=== PATIENT | female | born 1950 | race Caucasian/White ===

== ENCOUNTER 2020-06-03 15:04 | Outpatient (CLI) | payer MEDICARE, SELFPAY ==
--- NOTE | ~2020-06-03 | MM_ITS ---
EXAMINATION: MM screening jan BI w asha HISTORY: Screening mammogram TECHNIQUE: Craniocaudal and mediolateral oblique 3-D tomosynthesis images were obtained and synthetic 2-D images were generated. CAD analysis was submitted and interpreted. COMPARISON: 07/17/2018, 04/01/2016 bilateral digital screening mammogram examinations BREAST PARENCHYMAL COMPOSITION: The breasts are almost entirely fatty. FINDINGS: There is no evidence of suspicious mass, calcification, or architectural distortion to sugg est malignancy in either breast. There has been no suspicious interval change. IMPRESSION: 1. No mammographic evidence of malignancy. 2. Recommend routine screening mammography in one year. BI-RADS Category 1: Negative Reviewed, dictated and finalized at location A.
== END 2020-06-03 15:05 | disposition home or self-care (01) ==
LOC: ANHIMG 15:09
PROVIDERS: PCP Internal Medicine; Visit Provider Internal Medicine
DX: Z12.31 Encounter for screening mammogram for malignant neoplasm of breast (principal)
CPT/HCPCS: 77063; 77067

== ENCOUNTER 2022-04-19 09:08 | Day surgery (SDC) | payer MEDICARE, SELFPAY ==
[2022-03-16 13:50] VITALS: BMI 38.1
[2022-04-06 11:24] VITALS: BMI 31.1
--- NOTE | 2022-04-19 07:08 | WPDANESEPPF ---
Anes - Initial Pre Proc Eval Procedure: Operation Date: 04/19/22 11:00 Proposed Procedures p Screening Colonoscopy - Harish Matute MD Date/Time: 04/19/22 07:08 Surgeon: Harish Matute MD Pre Op Diagnosis: Neoplasm Screening Patient Data Age: 71 Gender: F Height: 1.52 m Weight: 72.5 kg Allergies Allergy/AdvReac Type Severity Reaction Status Date / Time No Known Allergies Allergy Verified 04/19/22 09:33 Home Medications Medication Instructions Recorded Confirmed Type sodium,potassium,mag sulfates 17.5 See Rx Instructions PO .COMPLEX 03/16/22 04/19/22 Rx gram-3.13 gram-1.6 gram oral soln #354 mL (Suprep Bowel Prep Kit) aspirin 81 mg tablet 81 mg PO DAILY 04/06/22 04/19/22 History atorvastatin 10 mg tablet 10 mg PO DAILY 04/06/22 04/19/22 History cetirizine 10 mg tablet (Zyrtec) 10 mg PO DAILY 04/06/22 04/19/22 History escitalopram oxalate 10 mg tablet 10 mg PO DAILY 04/06/22 04/19/22 History levothyroxine 125 mcg tablet 125 mcg PO DAILY 04/06/22 04/19/22 History montelukast 10 mg tablet 10 mg PO DAILY 04/06/22 04/19/22 History triamterene 37.5 1 tablet PO DAILY 04/06/22 04/19/22 History mg-hydrochlorothiazide 25 mg tablet Patient hx anesthesia problems: none Family hx anesthesia problems: none Results Review: All pre-operative results and documents have been reviewed as part of the pre-operative evaluation. [facility] Past Medical History Medical History (Updated 04/19/22 @ 09:56 by Harish Matute MD) Hyperlipidemia Hypertension Hypothyroidism Surgical History Surgical History (Updated 04/19/22 @ 07:09 by Gunnar Bauer DO) History of cholecystectomy Social History Social History Smoking status: Never smoker Alcohol intake: never Substance use: never Substance use type: does not use Living arrangements: with family Spiritual care concerns: No Anes - Eval Final PreProcedure Day of Procedure 04/19/22 07:08 Patient weight: obese Heart: regular rate and rhythm Lungs: clear to auscultation Airway: Mallampati scale class II Neurological: alert and oriented Last oral intake: >/= 8 hours ASA classification: III Emergent: no Anesthetic plan: proceed Anesthesia type and monitoring: general GIVS and standard monitoring Results Review: All pre-operative results and documents have been reviewed as part of the pre-operative evaluation. Informed Consent: The patient's anesthetic plan and its attendant risks and benefits were discussed with the patient/family/POA. Questions were solicited and answers provided to the satisfaction of the patient/family/POA.
[2022-04-19 09:30] VITALS: BP 140/74; PULSE 78; RESP 18; TEMP 35.9; O2SAT 95
[2022-04-19] MEDS: LACTATED RINGERS 1,000 ML 150 ML IV CONT (09:50)
--- NOTE | 2022-04-19 09:54 | PM.HPGS ---
History of Present Illness History of Present Illness Consent: Risks, benefits, and alternatives have been discussed and questions answered. Patient agrees to proceed with procedure. Chief complaint: Neoplasm Screening Narrative: Kari Tomas is a 71 year old female Presents for screening colonoscopy. Patient's current weight appetite and bowel movements are normal. Patient denies abdominal pain. She has had no bleeding. Family history is noncontributory. Patient's past medical history is significant for cholecystectomy. Review of Systems Review of Systems: Review of systems noncontributory. [facility] Past Medical History Medical History (Updated 04/19/22 @ 09:56 by Harish Matute MD) Hyperlipidemia Hypertension Hypothyroidism Surgical History Surgical History (Updated 04/19/22 @ 07:09 by Gunnar Bauer DO) History of cholecystectomy Social History Social History Smoking status: Never smoker Alcohol intake: never Substance use: never Substance use type: does not use Living arrangements: with family Spiritual care concerns: No Meds Home Medications and Allergies Home Medications Medication Instructions Recorded Confirmed Type sodium,potassium,mag sulfates 17.5 See Rx Instructions PO .COMPLEX 03/16/22 04/19/22 Rx gram-3.13 gram-1.6 gram oral soln #354 mL (Suprep Bowel Prep Kit) aspirin 81 mg tablet 81 mg PO DAILY 04/06/22 04/19/22 History atorvastatin 10 mg tablet 10 mg PO DAILY 04/06/22 04/19/22 History cetirizine 10 mg tablet (Zyrtec) 10 mg PO DAILY 04/06/22 04/19/22 History escitalopram oxalate 10 mg tablet 10 mg PO DAILY 04/06/22 04/19/22 History levothyroxine 125 mcg tablet 125 mcg PO DAILY 04/06/22 04/19/22 History montelukast 10 mg tablet 10 mg PO DAILY 04/06/22 04/19/22 History triamterene 37.5 1 tablet PO DAILY 04/06/22 04/19/22 History mg-hydrochlorothiazide 25 mg tablet Allergies Allergy/AdvReac Type Severity Reaction Status Date / Time No Known Allergies Allergy Verified 04/19/22 09:33 Vital Signs Vital Signs - 24 hr 04/19/22 09:30 Temperature 96.7 F L Pulse Rate 78 Respiratory Rate 18 Blood Pressure 140/74 Pulse Oximetry 95 Oxygen Delivery Room Air Exam Narrative: Physical exam reveals patient to be alert. Vital signs stable. HEENT exam is unremarkable. Patient is anicteric. Lungs are clear to auscultation and percussion. Heart is without murmur or extra sounds. Abdomen bowel sounds are present soft nontender with no organomegaly. Digital external rectal exam is normal. Assessment and Plan Assessment and plan (1) Encounter for screening colonoscopy: Code(s): Z12.11 - Encounter for screening for malignant neoplasm of colon Status: Acute Assessment and Plan: Patient presents for screening colonoscopy. Appears to be at average risk for colon polyps. Further recommendations may be given after endoscopy.
[2022-04-19 11:01] VITALS: BP 109/53; PULSE 76; RESP 15; O2SAT 99
[2022-04-19 11:11] VITALS: BP 129/66; PULSE 70; RESP 17; O2SAT 98
[2022-04-19 11:21] VITALS: BP 138/72; PULSE 61; RESP 18; O2SAT 100
--- NOTE | 2022-04-19 12:44 | WPDANESPN ---
Anes - Prog Note Post-Op Date/Time: 04/19/22 12:44 Cardiovascular status: normal Respiratory status: normal Airway patency: baseline Mental status: baseline Post-Op hydration status: normal Vital Signs: Last Vital Signs Temp 35.9 C L 04/19/22 09:30 Pulse 61 04/19/22 11:21 Resp 18 04/19/22 11:21 BP 138/72 04/19/22 11:21 Pulse Ox 100 04/19/22 11:21 O2 Del Method Room Air 04/19/22 11:21 Pain Score (VAS): 0 I/O: Intake & Output 04/18/22 04/19/22 04/19/22 23:59 07:59 15:59 Intake Total 500 Balance 500 Post-procedural complaints: none Patient Feedback: Patient satisfied with anesthetic care. Other Findings: Patient vital signs back to baseline. Patient denies nausea and vomiting. Patient's pain under control. Patient OK for discharge.
== END 2022-04-19 11:35 | disposition home or self-care (01) ==
PROVIDERS: PCP Internal Medicine; Visit Provider Internal Medicine Gastroenterology
PROC: 0DJD8ZZ Inspection of Lower Intestinal Tract, Via Natural or Artificial Opening Endoscopic (ICD-10-PCS; CPT 45378; principal; 2022-04-19 11:00)
DX: Z12.11 Encounter for screening for malignant neoplasm of colon (principal)
CPT/HCPCS: 45378

== ENCOUNTER 2022-05-18 09:52 | Outpatient (CLI) | payer MEDICARE, SELFPAY ==
--- NOTE | ~2022-05-18 | MM_ITS ---
EXAMINATION: MM screening jan BI w asha HISTORY: Screening TECHNIQUE: Craniocaudal and mediolateral oblique 3-D tomosynthesis images were obtained and synthetic 2-D images were generated. CAD analysis was submitted and interpreted. COMPARISON: Comparison to multiple prior studies sequentially, with oldest reviewed study dated 03/2016. BREAST PARENCHYMAL COMPOSITION: There are scattered areas of fibroglandular density. FINDINGS: There is no evidence of suspicious mass, calcification, or architectural distortion to sugg est malignancy in either breast. There has been no suspicious interval change. IMPRESSION: 1. No mammographic evidence of malignancy. 2. Recommend routine screening mammography in one year. BI-RADS Category 1: Negative Reviewed, dictated and finalized at location A.
== END 2022-05-18 09:53 | disposition home or self-care (01) ==
LOC: ANHIMG 09:55
PROVIDERS: PCP Internal Medicine; Visit Provider Internal Medicine
DX: Z12.31 Encounter for screening mammogram for malignant neoplasm of breast (principal)
CPT/HCPCS: 77063; 77067

== ENCOUNTER 2024-02-17 15:24 | Outpatient (CLI) | payer MEDICARE, SELFPAY ==
--- NOTE | ~2024-02-17 | MM_ITS ---
EXAMINATION: MM screening jan BI w asha HISTORY: Screening TECHNIQUE: Craniocaudal and mediolateral oblique 3-D tomosynthesis images were obtained and synthetic 2-D images were generated. CAD analysis was submitted and interpreted. COMPARISON: Comparison to multiple prior studies sequentially, with oldest reviewed study dated 05/18. BREAST PARENCHYMAL COMPOSITION: Not Dense: The breasts are almost entirely fatty. FINDINGS: The right breast is stable without evidence for malignancy. There is a new focal asymmetry with possible architectural distortion in the lower inner quadrants of the left breast, posterior thi rd. IMPRESSION: 1. New left breast asymmetry with possible architectural distortion in the lower inner quadrant. 2. Additional mammographic views and possible breast ultrasound are recommended. BI-RADS Category 0: Incomplete: Needs additional imaging evaluation. Reviewed, dictated and finalized at location B. L DESK CLERK IMPRESSION: 1. New left breast asymmetry with possible architectural distortion in the lowe r inner quadrant. 2. Additional mammographic views and possible breast ultrasound are recommended . BI-RADS Category 0: Incomplete: Needs additional imaging evaluation.
== END 2024-02-17 15:25 | disposition home or self-care (01) ==
LOC: ANHIMG 15:36
PROVIDERS: PCP Internal Medicine; Visit Provider Internal Medicine
DX: Z12.31 Encounter for screening mammogram for malignant neoplasm of breast (principal); R92.8 Other abnormal and inconclusive findings on diagnostic imaging of breast
CPT/HCPCS: 77063; 77067

== ENCOUNTER 2024-03-22 12:47 | Outpatient (CLI) | payer MEDICARE, SELFPAY ==
--- NOTE | ~2024-03-22 | MMUS_ITS ---
EXAMINATION: MM diagnostic jan LT w asha, US breast LT limited HISTORY: Follow-up left breast mass TECHNIQUE: Additional 3-D tomosynthesis images of the left breast were performed and synthetic 2-D im ages were generated. CAD analysis was submitted and interpreted. High resolution Limited left breast ultrasound was performed. COMPARISON: Comparison to multiple prior studies sequentially, with oldest reviewed study dated 03/2016. BREAST PARENCHYMAL COMPOSITION: Not dense: There are scattered areas of fibroglandular density. FINDINGS: MAMMOGRAPHIC FINDINGS: There is an irregular shaped mass with indistinct margins without associated calcifications in the 9: 00 position of the left breast.. ULTRASOUND: Limited left breast ultrasound: At 9:30, 14 cm from the nipple there is an irregular shaped hypoechoi c mass with some angular margins measuring 1.3 x 1.1 x 1 cm. There is posterior acoustic shadowing. N o internal vascularity. IMPRESSION: 1. Irregular shaped left breast mass measuring up to 1.3 cm at 9:30, 14 cm from the nipple. 2. Ultrasound-guided left breast biopsy recommended. BI-RADS category 4, suspicious findings. Reviewed, dictated and finalized at location A. CLEANING MANAGER IMPRESSION: 1. Irregular shaped left breast mass measuring up to 1.3 cm at 9:30, 14 cm from the nipple. 2. Ultrasound-guided left breast biopsy recommended. BI-RADS category 4, suspicious findings.
--- OUTSIDE RECORDS SUMMARY | 2024-03-23 04:59 | XMS_ITS | Data Portability ---
Author Organization [place] [facility], Main Office Address [address] [place] [address] Assessment Encounter Date Assessment Date Assessment LastModified by Organization Details LastModified Time 10/20/2022 10/20/2022 Continue current therapy blood work ordered Prevnar 26 month follow-up [email or web address] Not available 10/20/2022 22:37:19 Plan of Treatment Reminders Order Date Submit Date Provider Last Modified By Organization Details Last Modified Time Details Appointments None recorded . Lab CMP, serum or plasma 023 10/21/19 [facility], [address] , [place], [address], 3 11:45:36 lipid panel, serum 023 10/21/19 [facility], [address] , [place], [address], 3 11:45:37 CBC w/ auto diff 023 10/21/19 [facility], [address] , [place], [address], 3 11:23:13 TSH, serum or plasma 023 10/21/19 [facility], [address], [place], [address], 3 11:45:37 T4, free, serum 023 10/21/19 [facility], [address] , [place], [address], 3 11:45:37 T3, total, serum 023 10/21/19 [facility], [address], [place], [address], 3 11:45:37 Referral None recorded . Procedures None recorded . Surgeries None recorded . Imaging None recorded . Medication Orders None recorded . Patient TargetsNo targets recorded. Patient InstructionsNo instructions recorded. Reason for Referral None Reported. Results Created Date Observation Date Name Description Value Unit Range Abnormal Flag Note LastModifiedBy Organization Detail LastModifiedTime 06/04/1906/03/2020 MAMMO , scree kristen, digit al, bilat eral No observ ation record ed. [id number], [place], [address], 04/28/2022 06:09:56 05/19/1905/18/2022 MAMMO , scree kristen, digit al, bilat eral No observ ation record ed. [email or web address] [address], [place], [address], 05/25/2022 21:05:52 Result Notes None recorded. Problems Name Problem SNOMED Code Status Onset Date Resolution Date Notes Provider Name and Address Organization Details Recorded Time Edema 060524588 Active Not Available [facility] 3 06:03:05 Closed Colles' fracture 947039053 Completed Not Available [facility] 3 06:03:05 Depressive disorder 68168300 Completed Not Available [facility] 3 06:03:05 Hypothyroi dism 39204714 Active Not Available [facility] 3 06:03:05 Anxiety 50169593 Active 2020 Not Available [facility] 3 06:03:05 Hyperlipid emia 94718105 Active 2016 Not Available [facility] 3 06:03:05 Vitiligo 96697186 Completed Not Available [facility] 3 06:03:05 Essential hypertensi on 16661556 Active 2020 Not Available [facility] 3 06:03:06 Fatigue 63841741 Active 2022 Not Available [facility] 3 06:03:06 Chronic rhinitis 35441815 Active 2021 Not Available [facility] 3 06:03:06 Problem Notes None recorded. Procedures Surgical History Date Name Laterality Status Provider Name and Address Organization Details Recorded Time 07/22/19 Most Recent Bone Density completed Not Available [facility] 04/28/2022 05:55:52 Cholecystectomy completed Not Available [facility] 04/28/2022 05:55:56 Orthopedic Surgery completed Not Available [facility] 04/28/2022 05:55:56 Imaging Results Imaging Date Name Status LastModified by Organiz ation Details LastModified Time 06/03/2020 MAMMO, screening, digital, bilateral completed [id number] [place] [address], [address], 04/28/2022 06:09:56 05/18/2022 MAMMO, screening, digital, bilateral completed [email or web address] [address] [place] [address], [address], 05/25/2022 21:05:52 Procedure Notes None recorded. Medical Equipment None Reported. Allergies No known drug allergies Medications Name Sig Start Date Stop Date Status Note LastModified by Organization Details LastModified Time Augmentin 875 mg-125 mg tablet Take 1 tablet every 12 hours by oral route for 7 days. 05/29 completed Not Available Not Available Not Available levothyro xine 137 mcg tablet TAKE ONE TABLET BY MOUTH ONCE DAILY 01/30 completed Not Available Not Available Not Available prednison e 10 mg tablet Take 3 x 2 days, 2 x 2 days, 1 x 2 days 05/29 completed Not Available Not Available Not Available atorvasta tin 10 mg tablet TAKE 1 TABLET BY MOUTH ONCE DAILY 2023 active Not Available Not Available Not Avai lable azithromy clarence 250 mg tablet Take 1 dose pk by oral route as directed . 06/11 completed Not Available Not Available Not Available hydrocodo ne 5 mg-acetam inophen 325 mg tablet 02/14 completed Not Available Not Available Not Available prednison e 20 mg tablet Take 2 tablets every day by oral route for 7 days. active Not Available Not Available No t Available acetamino phen 300 mg-codein e 30 mg tablet 02/25 completed Not Available Not Available Not Available triamtere ne 37.5 mg-hydroc hlorothia zide 25 mg capsule 01/30 completed Not Available Not Available Not Available levothyro xine 125 mcg tablet TAKE 1 TABLET BY MOUTH ONCE DAILY active Not Available Not Available No t Available triamtere ne 37.5 mg-hydroc hlorothia zide 25 mg tablet TAKE 1 TABLET BY MOUTH IN THE MORNING 2023 active Not Available Not Available Not Avai lable amoxicill in 250 mg capsule 02/25 completed Not Available Not Available Not Available mont[address] 10 mg tablet TAKE 1 TABLET BY MOUTH DAILY 2023 active Not Available Not Available Not Avai lable albuterol sulfate HFA 90 mcg/actua tion aerosol inhaler INHALE 2 INHALATI ONS BY MOUTH EVERY 4 HOURS NEEDED active Not Available Not Available No t Available levothyro xine 112 mcg tablet Take 1 tablet every day by oral route. 03/24 completed Not Available Not Available Not Available Adult Low Dose Aspirin 81 mg tablet,de layed release Take 1 tablet every day by oral route. 2014 active Not Available Not Available Not Avai lable escitalop steven 10 mg tablet TAKE 1 TABLET BY MOUTH DAILY 2023 active Not Available Not Available Not Avai lable escitalop steven 5 mg tablet Take 1 tablet(s ) every day by oral route. 09/21 completed Not Available Not Available Not Available calcium Take one 1200 tablet daily 01/30 completed Calcium has Vitamin D Not Available Not Available Not Available Centrum 2022 active Not Available Not Available Not Avai lable Probiotic once daily 02/25 completed Not Available Not Available Not Available sodium,po tassium,m ag sulfates 17.5 gram-3.13 gram-1.6 gram oral soln MIX AND DRINK DIRECTED 04/21 completed Not Available Not Available Not Available Shingrix (PF) 50 mcg/0.5 mL intramusc ular suspensio n, kit ADM 0.5ML IM UTD 05/29 completed Not Available Not Available Not Available Flucelvax Quad (PF) 60 mcg (15 mcg x 4)/0.5 mL IM syringe active Not Available Not Available Not Available albuterol sulf 90 mcg/actua tion breath activated powder inhaler,s ensor inhale two puffs by mouth every 4 hrs as needed for SOB 10/08 completed Not Available Not Available Not Available Fluad 2019- 65yr up(PF)45 mcg(15 mcgx3)/0. 5 mL intramusc ular syringe 04/24 completed Not Available Not Available Not Available Vitals Date Recorded Body mass index (BMI) Body height Heart rate Body temperature Body weight Systolic blood pressure Diastolic blood pressure Provider Name and Address Organization Details Last Updated DateTime 1 38.7 kg/m2 152.4 cm 78 /min 96.9 [degF] 98107.2 9 g 114 mm[Hg] 64 mm[Hg] Not Available [facility] 3 05:57:04 Date Recorded Body mass index (BMI) Body height Heart rate Body temperature Body weight Systolic blood pressure Diastolic blood pressure Provider Name and Address Organization Details Last Updated DateTime 1 39.1 kg/m2 152.4 cm 78 /min 96.8 [degF] 77341.4 7 g 126 mm[Hg] 64 mm[Hg] Not Available [facility] 3 05:57:04 Date Recorded Body mass index (BMI) Body height Heart rate Body temperature Body weight Systolic blood pressure Diastolic blood pressure Provider Name and Address Organization Details Last Updated DateTime 2 37.1 kg/m2 152.4 cm 72 /min 97.7 [degF] 16614.5 5 g 126 mm[Hg] 68 mm[Hg] Not Available [facility] 3 05:57:04 Date Recorded Body mass index (BMI) Body height Heart rate Body temperature Body weight Systolic blood pressure Diastolic blood pressure Provider Name and Address Organization Details Last Updated DateTime 2 40.8 kg/m2 152.4 cm 71 /min 95.1 [degF] 90391.8 1 g 122 mm[Hg] 70 mm[Hg] Not Available [facility] 3 05:57:04 Date Recorded Body mass index (BMI) Body height Heart rate Body temperature Body weight Systolic blood pressure Diastolic blood pressure Provider Name and Address Organization Details Last Updated DateTime 3 41.6 kg/m2 152.4 cm 71 /min 97.6 [degF] 13244.1 7 g 126 mm[Hg] 74 mm[Hg] Not Available [facility] 3 05:57:04 Date Recorded Body height Body mass index (BMI) Body weight Body temperature Heart rate Oxygen saturation Oxygen saturation in Arterial blood by Pulse oximetry Systolic blood pressure Diastolic blood pressure Provider Name and Address Organization Details Last Updated DateTime 3 152.4 cm 37.3 kg/m2 65055.1 4 g 98 [degF] 70 /min 96 % 96 % 122 mm[Hg] 80 mm[Hg] [facility] 3 11:09:00 Social History Question Answer Notes LastModified by Organization Details LastModified Time Tobacco Smoking Status Never Smoker Not Available [facility] 04/28/2022 05:53:32 Do You Have An Advance Directive? Yes MIGRATION.0301 [id number] Information not available 04/28/2022 What Is Your Level Of Alcohol Consumption? Occasional Socially MIGRATION.0301 222076 Information not available 04/28/2022 Do You Wear A Helmet When Biking? Yes MIGRATION.0301 109067 Information not available 04/28/2022 Are You Blind Or Do You Have Difficulty Seeing? No MIGRATION.0301 952689 Information not available 04/28/2022 What Is Your Level Of Caffeine Consumption? Moderate MIGRATION.0301 174110 Information not available 04/28/2022 How Much Tobacco Do You Chew? None MIGRATION.0301 664532 Information not available 04/28/2022 In The 14 Days Before Symptom Onset, Have You Had Close Contact With A Laboratory-confi rmed COVID-19 While That Case Was Ill? No MIGRATION.0301 199793 Information not available 04/28/2022 In The 14 Days Before Symptom Onset, Have You Had Close Contact With A Person Who Is Under Investigation For COVID-19 While That Person Was Ill? No MIGRATION.0301 604149 Information not available 04/28/2022 Are You Deaf Or Do You Have Serious Difficulty Hearing? No MIGRATION.0301 224746 Information not available 04/28/2022 What Type Of Diet Are You Following? REGULAR MIGRATION.0301 391743 Information not available 04/28/2022 Which Illicit Or Recreational Drugs Have You Used? None MIGRATION.0301 507301 Information not available 04/28/2022 Do You Or Have You Ever Used E-cigarettes Or Vape? Never Used Electronic Cigarettes MIGRATION.0301 137304 Information not available 04/28/2022 What Is The Highest Grade Or Level Of School You Have Completed Or The Highest Degree You Have Received? 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 No MIGRATION.0301 915612 Information not available 04/28/2022 What Is The Fluoride Status Of Your Home? Unknown MIGRATION.0301 187169 Information not available 04/28/2022 Are There Any Guns Present In Your Home? Yes MIGRATION.0301 088960 Information not available 04/28/2022 Do You Use Insect Repellent Routinely? No MIGRATION.0301 673095 Information not available 04/28/2022 Where Do You Live? [facility] MIGRATION.0301 617346 Information not available 04/28/2022 Do You Have A Medical Power Of [employer] Car [employer]? Yes MIGRATION.0301 845301 Information not available 04/28/2022 What Was The Date Of Your Most Recent Tobacco Screening? 04/21/2022 MIGRATION.0301 816746 Information not available 04/28/2022 Have You Ever Been Counseled For Unhealthy Alcohol Use? No MIGRATION.0301 049188 Information not available 04/28/2022 Do You Have Any Pets? Yes MIGRATION.0301 561066 Information not available 04/28/2022 What Is Your Relationship Status? MIGRATION.0301 841352 Information not available 04/28/2022 Do You Use Your Seat Belt Or Car Seat Routinely? Yes MIGRATION.0301 679962 Information not available 04/28/2022 Do You Have Smoke And Carbon Monoxide Detectors In Your Home? Yes MIGRATION.0301 007362 Information not available 04/28/2022 Are You Passively Exposed To Smoke? No MIGRATION.0301 715641 Information not available 04/28/2022 Do You Or Have You Ever Used Smokeless Tobacco? Never Used Smokeless Tobacco MIGRATION.0301 502376 Information not available 04/28/2022 Are There Any Smokers In Your House? No MIGRATION.0301 406840 Information not available 04/28/2022 How Much Tobacco Do You Smoke? No MIGRATION.0301 828057 Information not available 04/28/2022 What Types Of Sporting Activities Do You Participate In? Yoga MIGRATION.0301 822518 Information not available 04/28/2022 Do You Feel Stressed (tense, Restless, Nervous, Or Anxious, Or Unable To Sleep At Night)? [id number] MIGRATION.0301 054965 Information not available 04/28/2022 Do You Use Any Illicit Or Recreational Drugs? No MIGRATION.0301 680472 Information not available 04/28/2022 Do You Use Sunscreen Routinely? Yes MIGRATION.0301 786232 Information not available 04/28/2022 Has Tobacco Cessation Counseling Been Provided? No Not Needed-nev er Smoked MIGRATION.0301 200910 Information not available 04/28/2022 How Many Years Have You Smoked Tobacco? 0 MIGRATION.0301 735148 Information not available 04/28/2022 Have You Recently Traveled Abroad? No MIGRATION.0301 220290 Information not available 04/28/2022 Do You Have Any Dietary Restrictions? No MIGRATION.0301 083060 Information not available 04/28/2022 Do You Or Have You Ever Used Any Other Forms Of Tobacco Or Nicotine? No MIGRATION.0301 730329 Information not available 04/28/2022 Sex: Female Functional Status Question Answer Note LastModified by Organizat ion Details LastModified Time Do you have difficulty walking or climbing stairs? No MIGRATION.9891956 026 Information not available 04/28/2022 Do you have transportation difficulties? No MIGRATION.8271124 026 Information not available 04/28/2022 Are you able to walk? YESWOREST MIGRATION.9280243 026 Information not available 04/28/2022 Do you have difficulty doing errands alone? No MIGRATION.3495821 026 Information not available 04/28/2022 Are you able to care for yourself? Yes MIGRATION.5221423 026 Information not available 04/28/2022 Do you have difficulty dressing or bathing? No MIGRATION.5168209 026 Information not available 04/28/2022 What is your exercise level? Occasional MIGRATION.8856188 026 Information not available 04/28/2022 Mental Status Question Answer Note LastModified by Organizat ion Details LastModified Time Do you have difficulty concentrating, remembering or making decisions? No MIGRATION.[id number] 6 Information not available 04/28/2022 Family History Relationship Description Onset Age of this Age Resolved Age Notes LastModified by Organization Details LastModified Time Mother Old-age 83 MIGRATION.206 [id number] Not available 04/28/2022 05:55:58 Father Malignant tumor of stomach deceas ed in 1999 MIGRATION.953 [id number] Not available 04/28/2022 05:55:58 Medical History Condition Response NERVE DISEASE N BLINDNESS N RHEUMATIC FEVER N KIDNEY STONES N BLADDER PROBLEMS N MRSA N OTHER # 1 N POLIO N LUNG DISEASE/DISORDER N RADIATION / CHEMOTHERAPY N COPD N Other # 2 N BLOOD DISEASES N SURGERY N EAR OR HEARING PROBLEMS N MUMPS N BOWEL PROBLEMS N DEPRESSION (INCLUDING POST ) N STROKE/TIA N ULCERS N BENIGN PROSTATIC HYPERPLASIA N MEASLES N MYOCARDIAL INFARCTION N OBESITY N GERD/NAUSEA N ANEURYSM N URINARY/BLADDER/KIDNEY PROBLEMS N CORONARY ARTERY DISEASE (CAD) N ADDICTION CONCERNS N Impotence N ENDOMETRIOSIS N USE OF BLOOD THINNERS N SKIN PROBLEMS N GASTROINTESTINAL DISORDER N PERIPHERAL VASCULAR DISEASE N MUSCLE,JOINT OR BONE PROBLEMS N GASTROINTESTINAL BLEEDING N BLOOD CLOTS N ASTHMA N CATARACTS N ERECTILE DYSFUNCTION N VARICOSITIES N GI PROBLEMS N Low Testosterone N INFERTILITY N AIDS/HIV N CHEMOTHERAPY / RADIATION N LIVER DISEASE N MALE HYPOGONADISM N HYPERTENSION Y Deficiency N ANXIETY DISORDER Y BLOOD TRANSFUSION N ANEMIA/BLOOD DISORDER N CHRONIC EAR INFECTIONS N BRONCHITIS N TUBERCULOSIS N GLAUCOMA N FOOT PROBLEM N DIVERTICULITIS N SLEEP APNEA N CHICKENPOX N INFECTIOUS DISEASE N PROSTATE N HEART ARRHYTHMIA N INSOMNIA N HIGH CHOLESTEROL / HYPERLIPIDEMIA Y EYE PROBLEMS N HYPERTHYROIDISM N NEUROLOGICAL PROBLEMS N EDEMA Y CHRONIC PAIN SYNDROME N HYPOTHYROIDISM Y CONSTIPATION N CAROTID BLOCKAGE N BACK / NECK PROBLEMS N ATHEROSCLEROSIS N BREAST PROBLEMS N DIALYSIS N ECZEMA N OSTEOPOROSIS N ARTHRITIS N APPENDICITIS N DIABETES, TYPE N BAD TEETH N ENT N HEARTBURN / REFLUX N AUTISM SPECTRUM DISORDER (ASD) N HEPATITIS / LIVER DISEASE N GOUT N SLEEP DISORDER N ALZHEIMER'S DISEASE N Brain Problems N DEMENTIA N HERPES N SEIZURES/EPILEPSY N HEADACHES/MIGRAINES N VASCULAR DISEASE N PACEMAKER N Blood Disorder N DIZZINESS N HEART DISEASE/HEART PROBLEMS N KIDNEY DISEASE N MULTIPLE SCLEROSIS N CANCER: SPECIFY N CARDIAC ARRHYTHMIA N ATRIAL FIBRILLATION N Gall Stones N PULMONARY EMBOLISM N AUTOIMMUNE DISEASE N Gynecological History Statement/Question Response Date of Last Pap Date of Last Mammogram 07/21/2018 Date of Last Colonoscopy Most Recent Bone Density 07/21/2018 Obstetrics History GPAL:G 0 P 0 0 0 0 Immunizations Vaccine Type Date Status Note Provider Nam e and Address Organization Details Recorded Time Pneumococcal conjugate PCV20, polysaccharide [id number] conjugate, adjuvant, PF 3 completed Elio Easley MD [address] [place] [address], [facility] [address], [place], [address], [facility] 10/20/2022 22:37:35 COVID-19, mRNA, LNP-S, PF, 100 mcg/0.5mL dose or 50 mcg/0.25mL dose 1 completed Not Available [facility] 04/28/2022 06:09:09 Influenza, high-dose, quadrivalent, PF 0 completed Not Available [facility] 04/28/2022 06:09:09 zoster recombinant 0 completed Not Available [facility] 04/28/2022 06:09:09 Influenza, high-dose, quadrivalent, PF 9 completed Not Available [facility] 04/28/2022 06:09:10 COVID-19, mRNA, LNP-S, PF, 100 mcg/0.5mL dose or 50 mcg/0.25mL dose 1 completed Not Available [facility] 04/28/2022 06:09:10 Influenza, high-dose, trivalent, PF 8 completed Not Available [facility] 04/28/2022 06:09:10 Influenza, split virus, quadrivalent, preservative 6 completed Not Available [facility] 04/28/2022 06:09:10 Pneumococcal conjugate PCV 13 6 completed Not Available [facility] 04/28/2022 06:09:10 Influenza, split virus, quadrivalent, PF 6 completed Not Available [facility] 04/28/2022 06:09:10 Influenza, split virus, quadrivalent, PF 7 completed Not Available [facility] 04/28/2022 06:09:10 Past Encounters Encounter ID Performer Location Encounter Start Date Encounter Closed Date Diagnosis/Indication Diagnosis SNOMED-CT Code Diagnosis ICD10 Code Diagnosis Note [id number] [facility] [address] [place] [address] [address] [address] 05/28/2020 00:00:00 06/14/2020 10:47:40 [id number] [facility] [address] [place] [address] [address] [address] 06/11/2020 00:00:00 06/11/2020 22:41:37 [id number] [facility] [address] [place] [address] [place] [address] 10/23/2020 00:00:00 10/23/2020 22:16:19 [id number] [facility] [address] [place] [address] [place] [address] 04/27/2021 00:00:00 04/27/2021 14:22:19 [id number] [facility] [address] [place] [address] [place] [address] 10/21/2021 00:00:00 10/22/2021 08:38:40 [id number] Elio Easley MD [facility] [address] [place] [address] [place] [address] 10/20/2022 10:56:11 10/20/2022 11:42:05 Essential hypertension 47991487 I10 Hyperlipidemia 62248373 E78.5 Hypothyroidism 08181651 E03.9 Administra tion of pneumococcal vaccine 31094193 Z23 Chronic rhinitis 0595686 6 J31.0 Health Concerns Section Related Observation LastModified by Organization Detai ls LastModified Time None Recorded Concern Status LastModified by Organization Details LastModified Time None Recorded Advance Directives Directive Y: Payers Encounter Date Sequence Insurance Name Policy Number Policy Alberts Covered Member ID Alberts Member ID Guarantor Name 10/20/2022 1 [facility] (MEDICARE REPLACEMENT/A DVANTAGE - HMO) [id number] Kari Tomas [id number] Kari Tomas Notes Date Note Type Note Provider Name and Address Organization Details Recorded Time 10/20/2022 text/html Hypertension no headache no dizziness hyperlipidemia trying follow a low-fat diet chronic rhinitis stable hypothyroid no heat or cold intolerance Elio Easley MD [address] [place] [address], [place] [address], [place], [address], [place] [facility] 10/20/2022 22:37:39 OBGyn Episode No OBEpisode recorded.
--- OUTSIDE RECORDS SUMMARY | 2024-03-23 04:59 | XMS_ITS | Data Portability ---
Author Organization [facility] Address [address] [place] [address] Care Team Providers Care Health Navigator Name Role Phone ELIO EASLEY Primary Care Provider Unavailabl e Assessment Encounter Date Assessment Date Assessment LastModified by Organization Details LastModified Time 06/02/2023 06/02/2023 We will continue current therapy add albuterol and a Z-Jamar for her cough obtain old records all questions answered follow-up in 4 to 6 months [email or web address] Not available 06/04/2023 22:00:32 12/08/2023 12/08/2023 obtain blood wor k we will continue with medications for hypertension chronic rhinitis hypothyroidism anxiety and dyslipidemia. Obtain screenings and immunization records best we can see me in 4 months [email or web address] Not available 12/11/2023 11:45:41 Plan of Treatment Reminders Order Date Submit Date Provider Last Modified By Organization Details Last Modified Time Details Appointments ANY 15 2024 09:15A M Elio Easley MD Not available Not available Not available Lab CBC w/ auto diff 2023 024 [facility], [address] [facility] [address], [place], [address], 06/15/2023 10:50:15 T3, free, serum or plasma 2023 024 [employer] [facility], [address], [place], [address], 06/15/2023 10:50:14 T4, free, serum 2023 024 [employer] [employer] [facility], [address] [facility] [address], [place], [address], 06/15/2023 10:50:15 TSH, serum or plasma 2023 [facility], [address], [place], [address], 06/15/2023 10:50:14 lipid panel, serum 2023 024 [place] [facility], [address], [place], [address], 06/03/2023 08:34:10 CMP, serum or plasma 2023 [facility], [address], [place], [address], 06/15/2023 10:50:14 CBC w/ auto diff 2023 [facility]24 [facility], [address], [place], [address], 12/12/2023 10:07:51 T4, free, serum 2023 024 [facility], [address], [place], [address], 12/12/2023 10:07:37 T3, free, serum or plasma 2023 024 [facility], [address], [place], [address], 12/12/2023 10:07:41 TSH, serum or plasma 2023 024 [facility], [address], [place], [address], 12/12/2023 10:07:46 CMP, serum or plasma 2023 024 [facility], [address], [place], [address], 12/12/2023 10:07:30 lipid panel, serum 2023 [facility], [address], [place], [address], 12/12/2023 10:07:26 Referral None recorded. Procedures None recorded. Surgeries None recorded. Imaging MAMMO, screening , digital, bilateral 2023 [facility] (Imaging), [address] [place] [address] [address] [facility], [place], [address], 02/21/2024 15:30:22 Medication Orders Zithromax Z-Jamar 250 mg tablet [address] [id number], [address] [facility], [place], [place], [id number], 06/02/2023 11:46:22 albuterol sulfate HFA 90 mcg/actua tion aerosol inhaler [address] [facility], [address] [facility], [place], [place], [id number], 06/02/2023 11:46:22 Patient TargetsNo targets recorded. Patient Instructions Encounter Date Encounter Id Patient Instructions Last Modified By Organization Details Last Modified Time 12/08/2023 [id number] A healthy lifestyle: care instructions [email or web address] Not available 12/08/2023 17:57:18 Reason for Referral None Reported. Results Created Date Observation Date Name Description Value Unit Range Abnormal Flag Note LastModifiedBy Organization Detail LastModifiedTime 02/20/20 24 02/17/2024 MAMMO , scree kristen, digit al, bilat eral No observ ation record ed. [address], [address], 02/28/2024 11:11:56 03/22/19 25 03/22/2024 imagi ng/di chrisos tic resul t No observ ation record ed. [address], [address], 03/22/2024 22:38:08 03/22/19 25 03/22/2024 imagi ng/di agnos tic resul t No observ ation record ed. [email or web address] [facility] [address] [facility] [address], [place], [address], 03/22/2024 22:38:08 Result Notes None recorded. Problems Name Problem SNOMED Code Status Onset Date Resolution Date Notes Provider Name and Address Organization Details Recorded Time Hyperlipidemia 49936884 Active 2023 Elio Easley MD Attn: Sd smith,[address] [facility], [place], [address], [facility] 4 10:53:55 Hypothyroidism 91873851 Active 2023 Elio Easley MD Attn: Sd smith,[address] [facility], [place], [address], [facility] 4 10:53:57 Cough 46744322 Active 2023 Elio Easley MD Attn: Sd smith,[address] [facility], [place], [address], [facility] 4 10:53:58 Chronic rhinitis 36945838 Active 2023 Elio Easley MD Attn: Sd smith,[address] [facility], [place], [address], [facility] 4 10:54:00 Anxiety 37730146 Active 2023 Elio Easley MD Attn: Sd smith,[address] [facility], [place], [address], [facility] 4 11:44:24 Problem Notes None recorded. Procedures Surgical History Date Name Laterality Status Provider Name and Address Organization Details Recorded Time Cholecystectomy completed Kacey Ryan MA [facility] 06/02/2023 10:15:33 ligation of bilateral fallopian tubes completed Kacey Ryan MA [facility] 06/02/2023 10:15:50 Imaging Results Imaging Date Name Status LastModified by Organiz ation Details LastModified Time 02/17/2024 MAMMO, screening, digital, bilateral completed [address], [place], [address], 02/28/2024 11:11:56 03/22/2024 imaging/diagno stic result active [address], [place], [address], 03/22/2024 22:38:08 03/22/2024 imaging/diagno stic result active [address], [place], [address], 03/22/2024 22:38:08 Procedure Notes None recorded. Medical Equipment None Reported. Allergies Allergen ID Allergen Name Allergen Category Reaction Reaction Severity Criticality Documentation Date Start Date Code Code System Note Provider Name and Address Organization Details Recorded Time [id number] nickel environme nt photosens itivity moderate Not available 06/02/2023 36028 29 RxNorm Not Available Not Available Not Available Medications Name Sig Start Date Stop Date Status Note LastModified by Organization Details LastModified Time atorvastatin 10 mg tablet TAKE 1 TABLET BY MOUTH ONCE DAILY 2023 active Not Available Not Available Not Avai lable azithromycin 250 mg tablet TAKE 2 TABLETS BY MOUTH FOR 1 DAY THEN TAKE 1 TABLET BY MOUTH DAILY FOR 4 DAYS active Not Available Not Available No t Available levothyroxine 125 mcg tablet TAKE 1 TABLET BY MOUTH ONCE DAILY active Not Available Not Available No t Available triamterene 37.5 mg-hydrochlorot hiazide 25 mg tablet TAKE 1 TABLET BY MOUTH IN THE MORNING 2023 active Not Available Not Available Not Avai lable montelukast 10 mg tablet TAKE 1 TABLET BY MOUTH DAILY 2023 active Not Available Not Available Not Avai lable albuterol sulfate HFA 90 mcg/actuation aerosol inhaler INHALE 2 PUFFS BY MOUTH EVERY 4 HOURS active Not Available Not Available No t Available escitalopram 10 mg tablet TAKE 1 TABLET BY MOUTH DAILY 2023 active Not Available Not Available Not Avai lable iron 27 mg iron tablet Take 1 tablet every day by oral route. active Not Available Not Available No t Available aspirin 81 mg capsule Take 1 capsule every day by oral route. active Not Available Not Available No t Available Vitals Date Recorded Body height Provider Name an d Address Organization Details Last Updated DateTime 06/02/2023 152.4 cm Kacey Ryan MA [facility] 06/02/2023 10:10:15 Date Recorded Body mass index (BMI) Body weight Provider Name and Address Organization Details Last Updated DateTime 06/02/2023 38.3 kg/m2 47704.1 g Kacey Ryan MA [facility] 06/02/2023 10:10:17 Date Recorded Heart rate Provider Name an d Address Organization Details Last Updated DateTime 06/02/2023 69 /min Kacey Ryan MA [facility] 04/0 05/2023 10:21:20 Date Recorded Oxygen saturation Oxygen saturation in Arterial blood by Pulse oximetry Provider Name and Address Organization Details Last Updated DateTime 06/02/2023 96 % 96 % Kacey Ryan MA [facility] 06/02/2023 10:21:22 Date Recorded Body height Provider Name an d Address Organization Details Last Updated DateTime 12/08/2023 152.4 cm Sandhya Jarrett MA [facility] 10:23:59 Date Recorded Body mass index (BMI) Body weight Provider Name and Address Organization Details Last Updated DateTime 12/08/2023 40.8 kg/m2 59400.09 g Sandhya Jarrett MA [facility] 1 10:36:21 Date Recorded Heart rate Provider Name an d Address Organization Details Last Updated DateTime 12/08/2023 68 /min Sandhya Jarrett MA [facility] 10:38:07 Date Recorded Oxygen saturation Oxygen saturation in Arterial blood by Pulse oximetry Provider Name and Address Organization Details Last Updated DateTime 12/08/2023 96 % 96 % Sandhya Jarrett MA [facility] 12/08/2023 10:38:09 Date Recorded Systolic blood pressure Diastolic blood pressure Provider Name and Address Organization Details Last Updated DateTime 06/02/2023 130 mm[Hg] 80 mm[Hg] Kacey Ryan MA [facility] 06/02/2023 10:20:42 Date Recorded Systolic blood pressure Diastolic blood pressure Provider Name and Address Organization Details Last Updated DateTime 12/08/2023 124 mm[Hg] 68 mm[Hg] Sandhya Jarrett MA [place] [facility] 12/08/2023 10:38:22 Social History Question Answer Notes LastModified by Organizat ion Details LastModified Time Tobacco Smoking Status Never Smoker Kacey Ryan MA [place], [place] [facility] 06/02/2023 10:14:21 Do You Have An Advance Directive? No Information not available 06/02/2023 What Is Your Level Of Alcohol Consumption? Occasional Information not available 06/02/2023 Are You Blind Or Do You Have Difficulty Seeing? No Information not available 06/02/2023 What Is Your Level Of Caffeine Consumption? Moderate Information not available 06/02/2023 In The 14 Days Before Symptom Onset, Have You Had Close Contact With A Laboratory-confir med COVID-19 While That Case Was Ill? No Information not available 12/08/2023 In The 14 Days Before Symptom Onset, Have You Had Close Contact With A Person Who Is Under Investigation For COVID-19 While That Person Was Ill? No Information not available 12/08/2023 Have You Been To An Area Known To Be High Risk For COVID-19? No Information not available 12/08/2023 Are You Currently Employed? No Retired Information not available 06/02/2023 Are You Deaf Or Do You Have Serious Difficulty Hearing? No Information not available 06/02/2023 What Type Of Diet Are You Following? REGULAR Information not available 06/02/2023 Are There Any Guns Present In Your Home? No Information not available 12/08/2023 What Was The Date Of Your Most Recent Tobacco Screening? 12/08/2023 Information not available 12/08/2023 What Is Your Relationship Status? Information not available 06/02/2023 Do You Use Your Seat Belt Or Car Seat Routinely? Yes Information not available 06/02/2023 Do You Have Smoke And Carbon Monoxide Detectors In Your Home? Yes Information not available 06/02/2023 Do You Feel Stressed (tense, Restless, Nervous, Or Anxious, Or Unable To Sleep At Night)? [id number] Information not available 06/02/2023 Do You Use Any Illicit Or Recreational Drugs? No Information not available 06/02/2023 Do You Use Sunscreen Routinely? Yes Information not available 06/02/2023 Has Tobacco Cessation Counseling Been Provided? No Information not available 06/02/2023 Do You Or Have You Ever Used Any Other Forms Of Tobacco Or Nicotine? No Information not available 06/02/2023 Sex: Female Functional Status Question Answer Note LastModified by Organization D etails LastModified Time Are you able to care for yourself? Yes Information not available 06/02/2023 What is your exercise level? Moderate Information not available 06/02/2023 Mental Status None recorded. Family History Relationship Description Onset Age of this Age Resolved Age Notes LastModified by Organization Details LastModified Time Brother Alcohol abuse [email or web address] Not available 05/2023 10:13:01 Brother Attention deficit hyperactivit y disorder [email or web address] Not available 05/2023 10:13:08 Brother Hypercholest erolemia bandersonma Not available 05/2023 10:13:38 Brother Hypertensive disorder [email or web address] Not available 05/2023 10:13:44 Mother Depressive disorder [email or web address] Not available 05/2023 10:13:15 Mother Osteoporosis [email or web address] Not av ailable 06/02/2023 10:13:59 Father Heart disease bandersonma Not available 05/2023 10:13:29 Medical History Condition Response Coronary Artery Disease N Other N Atrial Fibrillation N High Blood Pressure Y Thyroid Problems Y Kidney or Bladder Problems N Depression N COPD N Blood Clots N GI Problems N Skin Problems N Anemia N Heart Attack ([place]) N Diabetes N Anxiety Disorder Y Muscle, Joint, or Bone Problems N Seizures/Epilepsy N Acid Reflux (GERD) N Cancer N Stroke N Allergies Y Asthma N High Cholesterol Y Hepatitis N Liver Disease N Headaches N Osteoporosis N Heart Failure N Gynecological HistoryNo gynecological history recorded. Obstetrics History GPAL:G 0 P 0 0 0 0 Immunizations Vaccine Type Date Status Note Provider Nam e and Address Organization Details Recorded Time Influenza, split virus, quadrivalent, preservative 6 completed Sulma anthony, [place] - [facility] 12/15/2023 10:07:37 Influenza, MDCK, quadrivalent, PF 9 completed Sulma [place], [place] [facility] 12/15/2023 10:07:37 zoster recombinant 0 completed Sulma [place] [facility] 12/15/2023 10:07:38 Influenza, high-dose, quadrivalent, PF 9 completed Sulma [place] [facility] 12/15/2023 10:07:38 Influenza, adjuvanted, quadrivalent, PF 3 completed Sul[place] [facility] 12/15/2023 10:07:38 COVID-19, mRNA, LNP-S, PF, 100 mcg/0.5mL dose or 50 mcg/0.25mL dose 1 completed Sulma [place], [place] [facility] 12/15/2023 10:07:38 COVID-19, mRNA, LNP-S, PF, 100 mcg/0.5mL dose or 50 mcg/0.25mL dose 1 completed Sulma James[place] [facility] 12/15/2023 10:07:38 COVID-19, mRNA, LNP-S, PF, 30 mcg/0.3 mL dose 1 completed Sulma [place] [facility] 12/15/2023 10:07:38 Pneumococcal conjugate PCV20, polysaccharide [id number] conjugate, adjuvant, PF 3 completed Sulma [place] [facility] 12/15/2023 10:07:38 COVID-19, mRNA, LNP-S, bivalent, PF, 50 mcg/0.5 mL or 25mcg/0.25 mL dose 2 completed Sulma [place] [facility] 12/15/2023 10:07:38 Pneumococcal conjugate PCV 13 6 completed Sul[place] [facility] 12/15/2023 10:07:38 Influenza, high-dose, trivalent, PF 8 completed Sul[place] [facility] 12/15/2023 10:07:38 Influenza, split virus, trivalent, preservative 1 completed Sul[place] [facility] 12/15/2023 10:07:38 Influenza, split virus, quadrivalent, PF 6 completed Sul[place] [facility] 12/15/2023 10:07:38 Influenza, split virus, quadrivalent, PF 2 completed Sul[place] [facility] 12/15/2023 10:07:38 Influenza, split virus, quadrivalent, PF 7 completed Sul[place] [facility] 12/15/2023 10:07:38 Influenza, high-dose, trivalent, PF 4 completed lEio Easley MD Attn: [employer],[address] [place], [address], [facility] 12/11/2023 11:43:13 Past Encounters Encounter ID Performer Location Encounter Start Date Encounter Closed Date Diagnosis/Indication Diagnosis SNOMED-CT Code Diagnosis ICD10 Code Diagnosis Note [id number] Elio Easley MD [facility] [place] [address] [place] [address] 06/02/2023 09:52:37 06/02/2023 10:55:10 Hyperlipidemia 89069535 E78.5 Hypothyroidism 95490189 E03.9 Cough 70422838 R05.9 Chronic rhinitis 6435970 6 J31.0 Anxiety 70801451 F41.9 Long-term drug therapy 647073932 Z79.630 [id number] Elio Easley MD [facility] [place] [address] [place] [address] 12/08/2023 10:02:54 12/08/2023 11:00:53 Morbid obesity 765714557 E66.01 Hyperlipidemia 37126535 E78.5 Hypothyroidism 81312714 E03.9 Screening mammography 24 180330 Z12.31 Long-term drug therapy 576778151 Z79.899 Administra tion of influenza vaccine 88087819 Z23 Chronic rhinitis 4747238 6 J31.0 Anxiety 96577857 F41.9 Health Concerns Section Related Observation LastModified by Organization Detai ls LastModified Time None Recorded Concern Status LastModified by Organization Details LastModified Time None Recorded Advance Directives Directive N: Payers Encounter Date Sequence Insurance Name Policy Number Policy Alberts Covered Member ID Alberts Member ID Guarantor Name 06/02/2023 1 [facility] (MEDICARE REPLACEMENT/A DVANTAGE - HMO) [id number] Kari Thom [id number] [facility] 12/08/2023 1 [facility] (MEDICARE REPLACEMENT/A DVANTAGE - HMO) [id number] Kari [place] [id number] [facility] Notes Date Note Type Note Provider Name and Address Organization Details Recorded Time 06/02/2023 text/html 72-year-old with hyperlipidemia hypothyroidism chronic rhinitis and anxiety of which does seem to be doing reasonably well and no specific complaints referable to those diagnosis. She has had a little bit of a dry cough for 1 to 2 weeks occasional wheeze she gets this usually this time of the year because of allergies Elio Easley MD Attn: [address] [place], [address], [facility] 06/04/2023 22:00:48 12/08/2023 text/html hypertension no headache or dizziness. Hyperlipidemia trying to watch diet tolerating the atorvastatin. Hypothyroidism taking her medications no heat or cold intolerance palpitations or diarrhea. Rhinitis stable on the montelukast hit her anxiety is doing fine on the generic Lexapro Elio Easley MD Attn: [address] [place], [address], [facility] 12/11/2023 11:45:58 OBGyn Episode No OBEpisode recorded.
--- OUTSIDE RECORDS SUMMARY | 2024-03-23 05:00 | XMS_ITS | CONTINUITY OF CARE DOCUMENT ---
Author Name jaylenekavinnavneet hazel Address Unknown Organization [facility] Address [address] [facility] [address] [place] [address] Phone [phone] Care Team Providers Care Refuse And Recycling Worker Name Role Phone David NARAYAN, Jamaal Unavailable INSURANCE PROVIDERS Payer name Policy type / Coverage type Juanis red constitution party ID [facility] [id number] 1 [employer] Commercial insurance [employer] [id number]
== END 2024-03-22 12:48 | disposition home or self-care (01) ==
PROVIDERS: PCP Internal Medicine; Visit Provider Internal Medicine
DX: R92.8 Other abnormal and inconclusive findings on diagnostic imaging of breast (principal); N63.0 Unspecified lump in unspecified breast
CPT/HCPCS: 76642; 77061; 77065; G0279

== ENCOUNTER 2024-04-16 07:37 | Outpatient (CLI) | payer MEDICARE, SELFPAY ==
--- NOTE | ~2024-04-16 | MMUS_ITS ---
MM post biopsy diagnostic LT, US breast biopsy LT w image EXAMINATION: US GUIDED NEEDLE BIOPSY WITH VACUUM ASSISTANCE DATE: 04/16/2024 10:00 [facility]ENTER RECEPTIONIST INDICATION: Left breast mass seen on prior examination. Ultrasound-guided core biopsy is requested t o evaluate for malignancy. BREAST PARENCHYMAL COMPOSITION: Not Dense: The breasts are almost entirely fatty. TECHNIQUE AND FINDINGS: The risks and potential benefits of the procedure were discussed with the patient, and written inform ed consent was obtained. After sterile preparation of the left breast, 1% lidocaine was utilized for local anesthesia. 1% lidocaine with epinephrine was used for deep anesthesia. A 10G vacuum-assisted biopsy gun needle was advanced through to the outer edge of the region of inter est from a medial approach utilizing sonographic guidance. A total of 4 tissue core samples were obt ained through the lesion. An Inrad tissue marker clip was then placed at the biopsy site. Hemostasis was achieved. The patient tolerated procedure well and there was no evidence of immediate complication. The patien t was given verbal instructions partly is from the department. Left breast mammograms to document ti ssue marker clip placement. The tissue samples were submitted to surgical pathology for histologic an alysis. IMPRESSION: 1. Successful ultrasound-guided vacuum-assisted biopsy of left breast mass with post procedure mammo gram for marker placement. Please refer to pathology report for histologic analysis. Reviewed, dictated and finalized at location B. ER RECEPTIONIST IMPRESSION: 1. Successful ultrasound-guided vacuum-assisted biopsy of left breast mass wit h post procedure mammogram for marker placement. Please refer to pathology repo rt for histologic analysis.
--- OUTSIDE RECORDS SUMMARY | 2024-04-16 07:44 | XMS_ITS | Data Portability ---
Author Organization [place] - [facility], Main Office Address [address] [place] [address] Assessment Encounter Date Assessment Date Assessment LastModified by Organization Details LastModified Time 10/20/2022 10/20/2022 Continue current therapy blood work ordered Prevnar 26 month follow-up [email or web address] Not available 10/20/2022 22:37:19 Plan of Treatment Reminders Order Date Submit Date Provider Last Modified By Organization Details Last Modified Time Details Appointments None recorded . Lab CMP, serum or plasma 023 10/21/19 [facility], [address] , [place], [address], 3 11:45:36 lipid panel, serum 023 10/21/19 [facility], [address] , [place], [address], 3 11:45:37 CBC w/ auto diff 023 10/21/19 [facility], [address] , [place], [address], 3 11:23:13 TSH, serum or plasma 023 10/21/19 [facility], [address], [place], [address], 3 11:45:37 T4, free, serum 023 10/21/19 [facility], [address] , [place], [address], 3 11:45:37 T3, total, serum 023 10/21/19 [facility], [address], [place], [address], 3 11:45:37 Referral None recorded . Procedures [...] bilat eral No observ ation record ed. [id number], [place], [address], 04/28/2022 06:09:56 05/19/1905/18/2022 MAMMO , scree kristen, digit al, bilat eral No observ ation record ed. [email or web address] [address], [place], [address], 05/25/2022 21:05:52 Result Notes None recorded. Problems Name Problem SNOMED Code Status Onset Date Resolution Date Notes Provider Name and Address Organization Details Recorded Time Edema 970071840 Active Not Available [facility] 3 06:03:05 Closed Colles' fracture 408781437 Completed Not Available [facility] 3 06:03:05 Depressive disorder 40487004 Completed Not Available [facility] 3 06:03:05 Hypothyroi dism 42214488 Active Not Available [facility] 3 06:03:05 Anxiety 70479326 Active 2020 Not Available [facility] 3 06:03:05 Hyperlipid emia 17402039 Active 2016 Not Available [facility] 3 06:03:05 Vitiligo 25427073 Completed Not Available [facility] 3 06:03:05 Essential hypertensi on 44283311 Active 2020 Not Available [facility] 3 06:03:06 Fatigue 87279295 Active 2022 Not Available [facility] 3 06:03:06 Chronic rhinitis 46896265 Active 2021 Not Available [facility] 3 06:03:06 Problem Notes None recorded. Procedures Surgical History Date Name Laterality Status Provider Name and Address Organization Details Recorded Time 07/22/19 Most Recent Bone Density completed Not Available [facility] 04/28/2022 05:55:52 Cholecystectomy completed Not Available [facility] 04/28/2022 05:55:56 Orthopedic Surgery completed Not Available [facility] 04/28/2022 05:55:56 Imaging Results Imaging Date Name Status LastModified by Organiz ation Details LastModified Time 06/03/2020 MAMMO, screening, digital, bilateral completed [id number] [place] [address], [address], 04/28/2022 06:09:56 05/18/2022 MAMMO, screening, digital, bilateral completed [email or web address] [address] [place] [address], [address], 05/25/2022 21:05:52 Procedure Notes None recorded. Medical [...] Date Recorded Body mass index (BMI) Body mass index (BMI) Body mass index (BMI) Body mass index (BMI) Body mass index (BMI) Body height Body height Body height Body height Body height Heart rate Heart rate Heart rate Heart rate Heart rate Body temperature Body temperature Body temperature Body temperature Body temperature Body weight Body weight Body weight Body weight Body weight Systolic blood pressure Diastolic blood pressure Systolic blood pressure Diastolic blood pressure Systolic blood pressure Diastolic blood pressure Systolic blood pressure Diastolic blood pressure Systolic blood pressure Diastolic blood pressure Provider Name and Address Organization Details Last Updated DateTime 3 38.7 kg/m2 39.1 kg/m2 37.1 kg/m2 40.8 kg/m2 41.6 kg/m2 152.4 cm 152.4 cm 152.4 cm 152.4 cm 152.4 cm 78 /min 78 /min 72 /min 71 /min 71 /min 96.9 [degF] 96.8 [degF] 97.7 [degF] 95.1 [degF] 97.6 [degF] 97155.2 9 g 17060.4 7 g 21363.5 5 g 06317.8 1 g 38345.1 7 g 114 mm[Hg] 64 mm[Hg] 126 mm[Hg] 64 mm[Hg] 126 mm[Hg] 68 mm[Hg] 122 mm[Hg] 70 mm[Hg] 126 mm[Hg] 74 mm[Hg] Not Available [facility] 3 05:57:04 Date Recorded Body height Body mass index (BMI) Body weight Body temperature Heart rate Oxygen saturation Oxygen saturation in Arterial blood by Pulse oximetry Systolic blood pressure Diastolic blood pressure Provider Name and Address Organization Details Last Updated DateTime 3 152.4 cm 37.3 kg/m2 81491.1 4 g 98 [degF] 70 /min 96 % 96 % 122 mm[Hg] 80 mm[Hg] Becky Carey [place] [facility] [employer] [facility] 11:09:00 Social History Question Answer Notes LastModified by Organization Details LastModified Time Tobacco Smoking Status Never Smoker Not Available [facility] 04/28/2022 05:53:32 Do You Have An Advance Directive? Yes MIGRATION.030 [id number] Information not available 04/28/2022 What Is Your Level Of Alcohol Consumption? Occasional Socially MIGRATION.030 595859 Information not available 04/28/2022 Do You Wear A Helmet When Biking? Yes MIGRATION.030 634777 Information not available 04/28/2022 Are You Blind Or Do You Have Difficulty Seeing? No MIGRATION.030 332693 Information not available 04/28/2022 What Is Your Level Of Caffeine Consumption? Moderate MIGRATION.030 599332 Information not available 04/28/2022 How Much Tobacco Do You Chew? None MIGRATION.030 108909 Information not available 04/28/2022 In The 14 Days Before Symptom Onset, Have You Had Close Contact With A Laboratory-confi rmed COVID-19 While That Case Was Ill? No MIGRATION.030 381828 Information not available 04/28/2022 In The 14 Days Before Symptom Onset, Have You Had Close Contact With A Person Who Is Under Investigation For COVID-19 While That Person Was Ill? No MIGRATION.030 808324 Information not available 04/28/2022 Are You Deaf Or Do You Have Serious Difficulty Hearing? No MIGRATION.030 235007 Information not available 04/28/2022 What Type Of Diet Are You Following? REGULAR MIGRATION.030 651954 Information not available 04/28/2022 Which Illicit Or Recreational Drugs Have You Used? None MIGRATION.030 656851 Information not available 04/28/2022 Do You Or Have You Ever Used E-cigarettes Or Vape? Never Used Electronic Cigarettes MIGRATION.030 775284 Information not available 04/28/2022 What Is The Highest Grade Or Level Of School You Have Completed Or The Highest Degree You Have Received? 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 No MIGRATION.0301 018103 Information not available 04/28/2022 What Is The Fluoride Status Of Your Home? Unknown MIGRATION.0301 632355 Information not available 04/28/2022 Are There Any Guns Present In Your Home? Yes MIGRATION.0301 718408 Information not available 04/28/2022 Do You Use Insect Repellent Routinely? No MIGRATION.0301 649850 Information not available 04/28/2022 Where Do You Live? [facility] MIGRATION.0301 795414 Information not available 04/28/2022 Do You Have A Medical Power Of Power Plant Engineer? Yes MIGRATION.0301 304650 Information not available 04/28/2022 What Was The Date Of Your Most Recent Tobacco Screening? 04/21/2022 MIGRATION.0301 218140 Information not available 04/28/2022 Have You Ever Been Counseled For Unhealthy Alcohol Use? No MIGRATION.0301 337659 Information not available 04/28/2022 Do You Have Any Pets? Yes MIGRATION.0301 851739 Information not available 04/28/2022 What Is Your Relationship Status? MIGRATION.0301 885373 Information not available 04/28/2022 Do You Use Your Seat Belt Or Car Seat Routinely? Yes MIGRATION.0301 756879 Information not available 04/28/2022 Do You Have Smoke And Carbon Monoxide Detectors In Your Home? Yes MIGRATION.0301 760462 Information not available 04/28/2022 Are You Passively Exposed To Smoke? No MIGRATION.0301 444966 Information not available 04/28/2022 Do You Or Have You Ever Used Smokeless Tobacco? Never Used Smokeless Tobacco MIGRATION.0301 386666 Information not available 04/28/2022 Are There Any Smokers In Your House? No MIGRATION.0301 089746 Information not available 04/28/2022 How Much Tobacco Do You Smoke? No MIGRATION.0301 748063 Information not available 04/28/2022 What Types Of Sporting Activities Do You Participate In? Yoga MIGRATION.0301 084402 Information not available 04/28/2022 Do You Feel Stressed (tense, Restless, Nervous, Or Anxious, Or Unable To Sleep At Night)? [id number] MIGRATION.0301 794216 Information not available 04/28/2022 Do You Use Any Illicit Or Recreational Drugs? No MIGRATION.0301 736209 Information not available 04/28/2022 Do You Use Sunscreen Routinely? Yes MIGRATION.0301 647528 Information not available 04/28/2022 Has Tobacco Cessation Counseling Been Provided? No Not Needed-nev er Smoked MIGRATION.030 184218 Information not available 04/28/2022 How Many Years Have You Smoked Tobacco? 0 MIGRATION.030 205282 Information not available 04/28/2022 Have You Recently Traveled Abroad? No MIGRATION.0301 157263 Information not available 04/28/2022 Do You Have Any Dietary Restrictions? No MIGRATION.030 945999 Information not available 04/28/2022 Do You Or Have You Ever Used Any Other Forms Of Tobacco Or Nicotine? No MIGRATION.0301 939726 Information not available 04/28/2022 Sex: Female Functional Status Question Answer Note LastModified by [employer] Details LastModified Time Do you have difficulty walking or climbing stairs? No MIGRATION.9074582 026 Information not available 04/28/2022 Do you have transportation difficulties? No MIGRATION.4757440 026 Information not available 04/28/2022 Are you able to walk? YESWOREST MIGRATION.8752965 026 Information not available 04/28/2022 Do you have difficulty doing errands alone? No MIGRATION.4076427 026 Information not available 04/28/2022 Are you able to care for yourself? Yes MIGRATION.1510546 026 Information not available 04/28/2022 Do you have difficulty dressing or bathing? No MIGRATION.0520324 026 Information not available 04/28/2022 What is your exercise level? Occasional MIGRATION.0132434 026 Information not available 04/28/2022 Mental Status Question Answer Note LastModified by [employer] ion Details LastModified Time Do you have difficulty concentrating, remembering or making decisions? No MIGRATION.[id number] 6 Information not available 04/28/2022 Family History Relationship Description Onset Age of this Age Resolved Age Notes LastModified by Organization Details LastModified Time Mother Old-age 83 MIGRATION.963 [id number] Not available 04/28/2022 05:55:58 Father Malignant tumor of stomach deceas ed in 1999 MIGRATION.858 [id number] Not available 04/28/2022 05:55:58 Medical History Condition Response BLINDNESS N NERVE DISEASE N RHEUMATIC FEVER N BLADDER PROBLEMS N KIDNEY STONES N MRSA N OTHER # 1 N [...] ARTERY DISEASE (CAD) N ADDICTION CONCERNS N ENDOMETRIOSIS N Impotence N USE OF BLOOD THINNERS N SKIN [...] APNEA N CHICKENPOX N INFECTIOUS DISEASE N HEART ARRHYTHMIA N PROSTATE N INSOMNIA N HIGH CHOLESTEROL / HYPERLIPIDEMIA Y HYPERTHYROIDISM N EYE PROBLEMS N NEUROLOGICAL PROBLEMS N EDEMA Y CHRONIC PAIN SYNDROME N HYPOTHYROIDISM Y CAROTID BLOCKAGE N CONSTIPATION N BACK / NECK PROBLEMS N ATHEROSCLEROSIS N BREAST PROBLEMS N DIALYSIS N ECZEMA N OSTEOPOROSIS N ARTHRITIS N APPENDICITIS N DIABETES, TYPE N BAD TEETH N ENT N HEARTBURN / REFLUX N AUTISM SPECTRUM DISORDER (ASD) N HEPATITIS / LIVER DISEASE N GOUT N SLEEP DISORDER N ALZHEIMER'S DISEASE N Brain Problems N HERPES N DEMENTIA N HEADACHES/MIGRAINES N SEIZURES/EPILEPSY N VASCULAR DISEASE N PACEMAKER N Blood Disorder N DIZZINESS N HEART DISEASE/HEART PROBLEMS N KIDNEY DISEASE N MULTIPLE SCLEROSIS N CARDIAC ARRHYTHMIA N CANCER: SPECIFY N ATRIAL FIBRILLATION N Gall Stones N PULMONARY EMBOLISM N AUTOIMMUNE DISEASE N Gynecological History Statement/Question Response Date of Last Pap Date of Last Mammogram 07/21/2018 Date of Last Colonoscopy Most Recent Bone Density 07/21/2018 Obstetrics History GPAL:G 0 P 0 0 0 0 Immunizations Vaccine Type Date Status Note Provider Nam e and Address Organization Details Recorded Time Pneumococcal conjugate PCV20, polysaccharide [id number] conjugate, adjuvant, PF 3 completed Elio Easley MD [address] [place] [address], [facility] [address], [place], [address], [place] [facility] [place] [facility] 10/20/2022 22:37:35 COVID-19, mRNA, LNP-S, PF, 100 mcg/0.5mL dose or 50 mcg/0.25mL dose 1 completed Not Available [facility] 04/28/2022 06:09:09 Influenza, high-dose, quadrivalent, PF 0 completed Not Available [facility] 04/28/2022 06:09:09 zoster recombinant 0 completed Not Available [facility] 04/28/2022 06:09:09 Influenza, high-dose, quadrivalent, PF 9 completed Not Available [facility] 04/28/2022 06:09:10 COVID-19, mRNA, LNP-S, PF, 100 mcg/0.5mL dose or 50 mcg/0.25mL dose 1 completed Not Available [facility] 04/28/2022 06:09:10 Influenza, high-dose, trivalent, PF 8 completed Not Available [facility] 04/28/2022 06:09:10 Influenza, split virus, quadrivalent, preservative 6 completed Not Available [facility] 04/28/2022 06:09:10 Pneumococcal conjugate PCV 13 6 completed Not Available [facility] 04/28/2022 06:09:10 Influenza, split virus, quadrivalent, PF 6 completed Not Available [facility] 04/28/2022 06:09:10 Influenza, split virus, quadrivalent, PF 7 completed Not Available [facility] 04/28/2022 06:09:10 Past Encounters Encounter ID Performer Location Encounter Start Date Encounter Closed Date Diagnosis/Indication Diagnosis SNOMED-CT Code Diagnosis ICD10 Code Diagnosis Note [id number] [facility] [place] [address] [facility] [address] [place] [address] 05/28/2020 00:00:00 06/14/2020 10:47:40 [id number] [facility] [place] [address] [facility] [address] [place] [address] 06/11/2020 00:00:00 06/11/2020 22:41:37 [id number] [facility] [address] [place] [address] [place] [address] 10/23/2020 00:00:00 10/23/2020 22:16:19 [id number] [facility] [address] [facility] [address] [place] [address] 04/27/2021 00:00:00 04/27/2021 14:22:19 [id number] [facility] [address] [place] [address] [place] [address] 10/21/2021 00:00:00 10/22/2021 08:38:40 [id number] Elio Easley MD [facility] [address] [facility] [address] [place] [address] 10/20/2022 10:56:11 10/20/2022 11:42:05 Essential hypertension 98039300 I10 Hyperlipidemia 28690393 E78.5 Hypothyroidism 92275005 E03.9 Administra tion of pneumococcal vaccine 63214026 Z23 Chronic rhinitis 3688669 6 J31.0 Health Concerns Section Related Observation LastModified by Organization Detai ls LastModified Time None Recorded Concern Status LastModified by Organization Details LastModified Time None Recorded Advance Directives Directive Y: Payers Encounter Date Sequence Insurance Name Policy Number Policy Alberts Covered Member ID Alberts Member ID Guarantor Name 10/20/2022 1 [facility] (MEDICARE REPLACEMENT/A DVANTAGE - HMO) [id number] Kari Herrera Valentine [id number] Kari Valentine Notes Date Note Type Note Provider Name and Address Organization Details Recorded Time 10/20/2022 text/html Hypertension no headache no dizziness hyperlipidemia trying follow a low-fat diet chronic rhinitis stable hypothyroid no heat or cold intolerance Elio Easley MD [address], [address], [place], [address], [place] [facility] [employer] 10/20/2022 22:37:39 OBGyn Episode No OBEpisode recorded.
--- OUTSIDE RECORDS SUMMARY | 2024-04-16 07:44 | XMS_ITS | Data Portability ---
Author Organization [facility] Address [address] [place] [address] Care Team Providers Care Mountain Guide Name Role Phone ELIO EASLEY Primary Care Provider Unavailabl e Assessment Encounter Date Assessment Date Assessment LastModified by Organization Details LastModified Time 06/02/2023 06/02/2023 We will continue current therapy add albuterol and a Z-Jamar for her cough obtain old records all questions answered follow-up in 4 to 6 months [email or web address] Not available 06/04/2023 22:00:32 12/08/2023 12/08/2023 obtain blood wor k we will continue with medications for hypertension chronic rhinitis hypothyroidism anxiety and dyslipidemia. Obtain screenings and immunization records best we can see me in 4 months [email or web address] Not available 12/11/2023 11:45:41 Plan of Treatment Reminders Order Date Submit Date Provider Last Modified By Organization Details Last Modified Time Details Appointments ANY 15 2024 09:15A M Elio Easley MD Not available Not available Not available Lab CBC w/ auto diff 2023 024 [facility], [address], [place], [address], 12/12/2023 10:07:51 T4, free, serum 2023 024 [facility], [address], [place], [address], 12/12/2023 10:07:37 T3, free, serum or plasma 2023 024 [facility], [address], [place], [address], 12/12/2023 10:07:41 TSH, serum or plasma [address] [facility], [address], [place], [address], 12/12/2023 10:07:46 CMP, serum or plasma 2023 024 [facility], [address], [place], [address], 12/12/2023 10:07:30 lipid panel, serum 2023 024 [facility], [address], [place], [address], 12/12/2023 10:07:26 CBC w/ auto diff 2023 024 [facility], [address], [place], [address], 06/15/2023 10:50:15 T3, free, serum or plasma 2023 024 [facility], [address], [place], [address], 06/15/2023 10:50:14 T4, free, serum 2023 024 [facility], [address], [place], [address], 06/15/2023 10:50:15 TSH, serum or plasma 2023 024 [facility], [address], [place], [address], 06/15/2023 10:50:14 lipid panel, serum 2023 024 [facility], [address], [place], [address], 06/03/2023 08:34:10 CMP, serum or plasma 2023 024 [facility], [address], [place], [address], 06/15/2023 10:50:14 Referral None recorded. Procedures None recorded. Surgeries None recorded. Imaging MAMMO, screening , digital, bilateral 2023 [facility] (Imaging), [facility] [address] [facility], [place], [address], 02/21/2024 15:30:22 Medication Orders Zithromax Z-Jamar 250 mg tablet 2023 [email or web address] [facility], [address] [facility], [place], [place], [id number], 06/02/2023 11:46:22 albuterol sulfate HFA 90 mcg/actua tion aerosol inhaler 2023 [email or web address] [facility], [address] [facility] [facility], [place], [place], [id number], 06/02/2023 11:46:22 Patient TargetsNo targets recorded. Patient Instructions Encounter Date Encounter Id Patient Instructions Last Modified By Organization Details Last Modified Time 12/08/2023 [id number] A healthy lifestyle: care instructions [email or web address] Not available 12/08/2023 17:57:18 Reason for Referral None Reported. Results Created Date Observation Date Name Description Value Unit Range Abnormal Flag Note LastModifiedBy Organization Detail LastModifiedTime 02/20/20 24 02/17/2024 MAMMO , scree kristen, digit al, bilat eral No observ ation record ed. [address], [address], 02/28/2024 11:11:56 03/22/19 25 03/22/2024 , humble [place] No observ ation record ed. [facility] (Imaging) [address] [place] [address], [address], 03/23/2024 13:12:25 Result Notes None recorded. Problems Name Problem SNOMED Code Status Onset Date Resolution Date Notes Provider Name and Address Organization Details Recorded Time Hyperlipidemia 98995676 Active 2023 Elio Easley MD Attn: Gilbertyulia smith,[address] [facility], [place], [address], [facility] 4 10:53:55 Hypothyroidism 79360532 Active 2023 Elio Easley MD Attn: Sd sarah,[address] [facility], [place], [address], [facility] 4 10:53:57 Cough 80936686 Active 2023 Elio Easley MD Attn: Sd sarah,[address] [facility], [place], [address], [facility] 4 10:53:58 Chronic rhinitis 64782621 Active 2023 Elio Easley MD Attn: Sd sarah,[address] [facility], [place], [address], [facility] 4 10:54:00 Anxiety 89732649 Active 2023 Elio Easley MD Attn: Sd sarah,[address] [facility], [place], [address], [facility] 11:44:24 Problem Notes None recorded. Procedures Surgical History Date Name Laterality Status Provider Name and Address Organization Details Recorded Time Cholecystectomy completed Kacey Ryan MA [facility] 06/02/2023 10:15:33 ligation of bilateral fallopian tubes completed Kacey Ryan MA [place] [facility] 06/02/2023 10:15:50 Imaging Results Imaging Date Name Status LastModified by [facility] Details LastModified Time 02/17/2024 MAMMO, screening, digital, bilateral completed [address] [place] [address], [address], 02/28/2024 11:11:56 03/22/2024 US, breast, unilateral completed [facility] (Imaging) [address] [place] [address] [place] [address], [address], 03/23/2024 13:12:25 Procedure Notes None recorded. Medical Equipment None Reported. Allergies Allergen ID Allergen Name Allergen Category Reaction Reaction Severity Criticality Documentation Date Start Date Code Code System Note Provider Name and Address Organization Details Recorded Time 16890406 nickel environme nt photosens itivity moderate Not available 06/02/2023 74107 29 RxNorm Not Available Not Available Not [...] t Available Vitals Date Recorded Body height Body mass index (BMI) Body weight Heart rate Oxygen saturation Oxygen saturation in Arterial blood by Pulse oximetry Systolic blood pressure Diastolic blood pressure Provider Name and Address Organization Details Last Updated DateTime 4 152.4 cm 38.3 kg/m2 98677.1 g 69 /min 96 % 96 % 130 mm[Hg] 80 mm[Hg] Kacey Ryan MA [place] [facility] 4 10:20:42 Date Recorded Body height Body mass index (BMI) Body weight Heart rate Oxygen saturation Oxygen saturation in Arterial blood by Pulse oximetry Systolic blood pressure Diastolic blood pressure Provider Name and Address Organization Details Last Updated DateTime 152.4 cm 40.8 kg/m2 32031.0 9 g 68 /min 96 % 96 % 124 mm[Hg] 68 mm[Hg] Sandhya Jarrett MA [place] [facility] 10:38:22 Social History Question Answer Notes LastModified by Organizat ion Details LastModified Time Tobacco Smoking Status Never Smoker Kacey Ryan MA [facility], [facility] 06/02/2023 10:14:21 Do You Have An Advance [...] Anxious, Or Unable To Sleep At Night)? [id number] Information not available 06/02/2023 Do You Use [...] Response Coronary Artery Disease N Other N High Blood Pressure Y Atrial Fibrillation N Kidney or Bladder Problems N Thyroid Problems Y GI Problems N Depression N COPD N Blood Clots N Skin Problems N Anemia N Heart Attack ([place]) N Anxiety Disorder Y Diabetes N Muscle, Joint, or Bone Problems N Seizures/Epilepsy N Acid Reflux (GERD) N Cancer N Stroke N Asthma N Allergies Y High Cholesterol Y Hepatitis N Liver Disease N Headaches N Heart Failure N Osteoporosis N Gynecological HistoryNo gynecological history recorded. Obstetrics History GPAL:G 0 P 0 0 0 0 Immunizations Vaccine Type Date Status Note Provider Nam e and Address Organization Details Recorded Time Influenza, split virus, quadrivalent, preservative 6 completed Sulma [place] null, [place] [facility] 12/15/2023 10:07:37 Influenza, MDCK, quadrivalent, PF 9 completed [place] [facility] 12/15/2023 10:07:37 zoster recombinant 0 completed Sulma [place], [place] [facility] 12/15/2023 10:07:38 Influenza, high-dose, quadrivalent, PF 9 completed [place] [facility] 12/15/2023 10:07:38 Influenza, adjuvanted, quadrivalent, PF 3 completed [place] [facility] 12/15/2023 10:07:38 COVID-19, mRNA, LNP-S, PF, 100 mcg/0.5mL dose or 50 mcg/0.25mL dose 1 completed Sul[place] [facility] 12/15/2023 10:07:38 COVID-19, mRNA, LNP-S, PF, 100 mcg/0.5mL dose or 50 mcg/0.25mL dose 1 completed Sul[place] [facility] 12/15/2023 10:07:38 COVID-19, mRNA, LNP-S, PF, 30 mcg/0.3 mL dose 1 completed Sul[place] [facility] 12/15/2023 10:07:38 Pneumococcal conjugate PCV20, polysaccharide [id number] conjugate, adjuvant, PF 3 completed [place] [facility] 12/15/2023 10:07:38 COVID-19, mRNA, LNP-S, bivalent, PF, 50 mcg/0.5 mL or 25mcg/0.25 mL dose 2 completed [place] [facility] 12/15/2023 10:07:38 Pneumococcal conjugate PCV 13 6 completed Sul[place] [facility] 12/15/2023 10:07:38 Influenza, high-dose, trivalent, PF 8 completed [place] [facility] 12/15/2023 10:07:38 Influenza, split virus, trivalent, preservative 1 completed [place] [facility] 12/15/2023 10:07:38 Influenza, split virus, quadrivalent, PF 6 completed [place] [facility] 12/15/2023 10:07:38 Influenza, split virus, quadrivalent, PF 2 completed [place] [facility] 12/15/2023 10:07:38 Influenza, split virus, quadrivalent, PF 7 completed [place] [facility] 12/15/2023 10:07:38 Influenza, high-dose, trivalent, PF 4 completed Elio Easley MD Attn: [employer],[address] [place], [address], [facility] 12/11/2023 11:43:13 Past Encounters Encounter ID Performer Location Encounter Start Date Encounter Closed Date Diagnosis/Indication Diagnosis SNOMED-CT Code Diagnosis ICD10 Code Diagnosis Note [id number] Elio Easley MD [facility] [employer] [address] [place] [address] 06/02/2023 09:52:37 06/02/2023 10:55:10 Hyperlipidemia 28369180 E78.5 Hypothyroidism 10210999 E03.9 Cough 41900960 R05.9 Chronic rhinitis 4325012 6 J31.0 Anxiety 84295226 F41.9 Long-term drug therapy 556961555 Z79.449 [id number] Elio Easley MD [facility] [employer] [address] [place] [address] 12/08/2023 10:02:54 12/08/2023 11:00:53 Morbid obesity 211560659 E66.01 Hyperlipidemia 29376564 E78.5 Hypothyroidism 44987278 E03.9 Screening mammography 24 499366 Z12.31 Long-term drug therapy 252948705 Z79.899 Administra tion of influenza vaccine 72957304 Z23 Chronic rhinitis 7249378 6 J31.0 Anxiety 36016735 F41.9 Health Concerns Section Related Observation LastModified by Organization Detai ls LastModified Time None Recorded Concern Status LastModified by Organization Details LastModified Time None Recorded Advance Directives Directive N: Payers Encounter Date Sequence Insurance Name Policy Number Policy Alberts Covered Member ID Alberts Member ID Guarantor Name 06/02/2023 1 [facility] (MEDICARE REPLACEMENT/A DVANTAGE - HMO) [id number] [facility] [id number] [facility] 12/08/2023 1 [facility] (MEDICARE REPLACEMENT/A DVANTAGE - HMO) [id number] [facility] [id number] [facility] Notes Date Note Type Note Provider Name [...] allergies Elio Easley MD Attn: [employer] [place], [address], [facility] 06/04/2023 22:00:48 12/08/2023 text/html hypertension no headache or dizziness. Hyperlipidemia trying to watch diet tolerating the atorvastatin. Hypothyroidism taking her medications no heat or cold intolerance palpitations or diarrhea. Rhinitis stable on the montelukast hit her anxiety is doing fine on the generic Lexapro Elio Easley MD Attn: [employer] [place], [address], [place] [facility] 12/11/2023 11:45:58 OBGyn Episode No OBEpisode recorded.
== END 2024-04-16 07:38 | disposition home or self-care (01) ==
PROVIDERS: PCP Internal Medicine; Visit Provider Internal Medicine
DX: C50.212 Malignant neoplasm of upper-inner quadrant of left female breast (principal)
CPT/HCPCS: 19083; 77065; 88305; 88360; A4648